=== PATIENT | male | born 2000 | race Caucasian/White ===

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

== ENCOUNTER 2023-02-17 07:36 | Emergency (ER) | payer BC ==
[~2023-02-17] VITALS: Ht 180.3 cm; Wt 90.9 kg
[~2023-02-17 07:36] MED LIST changes: +ADDERALL XR25 MG PO; +COGENTIN 1MG1 MG/TAB PO; +VRAYLAR3 MG PO
[2023-02-17 07:53] LABS: COLLECTION METHOD CLEAN CATCH
[2023-02-17 08:17] LABS: TRICYCLIC ANTIDEPRESS URINE NEGATIVE
[2023-02-17 08:18] LABS: BASO # 0.1 K/mm3 (0.0-0.2); BASO % 0.5 % (0.0-2.0); EOS # 0.1 K/mm3 (0.0-0.7); EOS % 0.7 % (0.0-4.0); GRAN # 6.5 K/mm3 (1.4-6.5); GRAN % 59.6 % (42.2-75.2); HEMATOCRIT 50.7 % (42.0-52.0); LYMPH # 3.7 K/mm3 (1.2-3.4); LYMPH % 33.7 % (20.0-51.0); MEAN CELL VOLUME 84 fl (80.0-100.0); MEAN CORPUSCULAR HEMOGLOBIN 30 pg (27-31); MEAN CORPUSCULAR HGB CONC 36 g/dl (33.0-37.0); MEAN PLATELET VOLUME 11.2 fl (7.4-10.4); MONO # 0.6 K/mm3 (0.1-0.6); MONO % 5.2 % (1.7-9.3); PLATELET COUNT 382 K/mm3 (130-400); RED BLOOD COUNT 6.04 M/mm3 (4.20-5.60); REDCELL DISTRIBUTION WIDTH-CV 12.3 % (11.5-14.5)
[2023-02-17 08:21] LABS: HEMOGLOBIN 18.1 g/dl (13.5-18.0)
[2023-02-17 08:38] LABS: ACETAMINOPHEN < 1.0 ug/mL (10-30); ALANINE AMINOTRANSFERASE 62 U/L (0-55); ALCOHOL(ethanol),MEDICAL < 10 mg/dL (0-10); ALKALINE PHOSPHATASE 143 U/L (40-150); ANION GAP 16 mmol/L (7-16); AST,SGOT 33 U/L (5-34); BILIRUBIN,TOTAL 1.1 mg/dL (0.2-1.2); BLOOD UREA NITROGEN 8 mg/dL (9-21); CALCIUM 10.3 mg/dL (8.4-10.2); CARBON DIOXIDE 21 mmol/L (22-29); CHLORIDE 104 mmol/L (98-107); CREATININE, serum 0.84 mg/dL (0.72-1.25); GLUCOSE 117 mg/dL (70-99); POTASSIUM 3.3 mmol/L (3.5-4.5); SALICYLATE < 5.0 mg/dL (15.0-30.0); SODIUM 141 mmol/L (136-145); TOTAL PROTEIN 8.8 gm/dL (6.2-8.1)
[2023-02-17 08:51] LABS: SQUAMOUS EPITHELIAL 0-2 /hpf (0-10); URINE APPEARANCE Clear (CLEAR/HAZY); URINE BLOOD TRACE-INTACT (NEGATIVE); URINE COLOR Yellow (YELLOW); URINE GLUCOSE Negative (NEGATIVE); URINE KETONE TRACE (NEGATIVE); URINE NITRATE Negative (NEGATIVE); URINE PROTEIN(semi-quant) 1+ (NEGATIVE); URINE RBC 0-2 /hpf (0-2); URINE UROBILINOGEN 0.2 E.U/dL (0.2-1.0)
[2023-02-17 08:52] LABS: URINE BACTERIA None Seen /hpf (NONE SEEN)
[2023-02-17 11:18] VITALS: BP 151/98; PULSE 77; TEMP 97.7
== END 2023-02-17 11:18 | disposition home or self-care (01) ==
LOC: COL.ER 07:36
PROVIDERS: Emergency Medicine
DX: F32.A Depression, unspecified (principal); R73.9 Hyperglycemia, unspecified